=== PATIENT | female | born 1945 | race Caucasian/White ===

== ENCOUNTER 2018-07-12 15:13 | Emergency (ER) | payer MEDICARE, MEDICAID ==
[2018-07-12] MEDS ORDERED: levETIRAcetam 250 MG Tab PO SCH (17:00)
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
== END 2018-07-12 18:53 | disposition home or self-care (01) ==
LOC: FB.ED 15:13
DX: R56.9 Unspecified convulsions (principal); Z88.8 Allergy status to other drugs, medicaments and biological substances; Z79.899 Other long term (current) drug therapy
CPT/HCPCS: 36415; 70450; 80053; 80177; 82550; 84484; 85025; 85379; 93005; 99284; A9270-GY

== ENCOUNTER 2018-11-28 06:59 | Day surgery (SDC) | payer MEDICARE, MEDICAID ==
[~2018-11-28 06:59] MED LIST: Lactated Ringers 1,000 ML IV SCH
[2018-11-28] MEDS ORDERED: Propofol 200 MG/20 ML SDV IV ONE (07:00)
[2018-11-28] MEDS ORDERED: Midazolam 1 MG/ML 2 ML SDV IV ONE (07:00)
--- NOTE | 2018-11-28 08:26 | PCM.OPNOTE ---
- General Post-Op/Procedure Note Date of Surgery/Procedure: 11/28/18 Operative Procedure(s): c scope with bx Findings: normal mucosa scattered sigmoid diverticuli Pre Op Diagnosis: diarrhea Post-Op Diagnosis: normal mucosa. scattered sigmoid diverticuli Anesthesia Technique: MAC Primary Surgeon: Dmitry Cowart Anesthesia Provider: Pinky Rashid ([facility] CRNAS) Pathology: random bx Complications: None Condition: Good Free Text/Narrative:: see dictation
--- NOTE | 2018-11-28 15:34 | OR ---
DATE OF OPERATION: 11/28/2018 SURGEON: Dmitry Cowart MD PROCEDURE PERFORMED: Colonoscopy with cold forceps biopsy. PREOPERATIVE DIAGNOSIS: Personal history of diarrhea and generalized abdominal pain. POSTOPERATIVE DIAGNOSIS: Grossly normal scope. INDICATIONS FOR PROCEDURE: This is a 72-year-old white female, who has had a longstanding history of diarrhea. She was offered and accepted colonoscopy as part of the workup. DESCRIPTION OF OPERATION: After an excellent IV sedation was administered, digital rectal exam was performed. No marked abnormality was noted. Flexible colonoscope was inserted and advanced to the cecum. Prep was excellent. The following findings were noted: Ascending colon, unremarkable, random biopsies done. Transverse colon, unremarkable, random biopsies were done. Descending colon, unremarkable, random biopsies were done. Sigmoid and rectum unremarkable except for scattered diverticula. Random biopsies were done. Colon was deflated. Scope was removed. Results by letter. /[id number] /MODL
== END 2018-11-28 09:28 | disposition home or self-care (01) ==
LOC: FB.SDS 06:59
PROVIDERS: ATTEND Surgery
DX: K57.30 Diverticulosis of large intestine without perforation or abscess without bleeding (principal); F32.9 Major depressive disorder, single episode, unspecified; F41.1 Generalized anxiety disorder; E66.9 Obesity, unspecified; Z68.34 Body mass index [BMI] 34.0-34.9, adult; Z88.8 Allergy status to other drugs, medicaments and biological substances; Z86.010 Personal history of colon polyps; Z79.82 Long term (current) use of aspirin; Z79.899 Other long term (current) drug therapy
CPT/HCPCS: 00811-QZ; 88305; J2250; J2704; J7120

== ENCOUNTER 2019-01-23 14:12 | Emergency (ER) | payer MEDICARE, MEDICAID ==
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
[2019-01-23] MEDS ORDERED: Cephalexin 500 MG Cap PO ONE (18:47)
--- NOTE | 2019-01-24 10:32 | CR ---
INDICATION: Fall, chest pain, fell over walker, syncope. CHEST: PA and lateral views of the chest, 01/23/19 - no comparisons. The heart is normal in size and shape. The aorta is tortuous. Moderate to moderately severe bridging hyperostotic changes are noted in the mid to lower middle thoracic spine. Slightly flattened diaphragm leaves, interdigitation, prominent AP diameter, and hyperaeration all suggest COPD - correlate clinically. Overlying EKG leads and snaps are noted. No consolidating pneumonia or effusion was seen. IMPRESSION: 1. No definite acute process. 2. Probable COPD. 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
== END 2019-01-23 18:58 | disposition home or self-care (01) ==
LOC: FB.ED 14:12
DX: N39.0 Urinary tract infection, site not specified (principal); I50.9 Heart failure, unspecified; K21.9 Gastro-esophageal reflux disease without esophagitis; F41.9 Anxiety disorder, unspecified; M19.90 Unspecified osteoarthritis, unspecified site; F32.9 Major depressive disorder, single episode, unspecified; E66.9 Obesity, unspecified; Z68.34 Body mass index [BMI] 34.0-34.9, adult; Z88.8 Allergy status to other drugs, medicaments and biological substances; Z79.83 Long term (current) use of bisphosphonates; Z79.82 Long term (current) use of aspirin; Z79.899 Other long term (current) drug therapy; Z77.22 Contact with and (suspected) exposure to environmental tobacco smoke (acute) (chronic)
CPT/HCPCS: 36415; 71046; 80053; 81001; 84484; 85025; 86140; 93005; 99284; A9270; 93010

== ENCOUNTER 2019-06-15 15:40 | Emergency (ER) | payer MEDICARE, MEDICAID ==
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
== END 2019-06-15 17:42 | disposition home or self-care (01) ==
LOC: FB.ED 15:40
DX: F44.5 Conversion disorder with seizures or convulsions (principal); I50.9 Heart failure, unspecified; K21.9 Gastro-esophageal reflux disease without esophagitis; M19.90 Unspecified osteoarthritis, unspecified site; F41.9 Anxiety disorder, unspecified; F32.9 Major depressive disorder, single episode, unspecified; Z86.73 Personal history of transient ischemic attack (TIA), and cerebral infarction without residual deficits; E66.9 Obesity, unspecified; Z68.36 Body mass index [BMI] 36.0-36.9, adult; Z88.8 Allergy status to other drugs, medicaments and biological substances; Z79.82 Long term (current) use of aspirin; Z79.899 Other long term (current) drug therapy
CPT/HCPCS: 93005; 99284-25

== ENCOUNTER 2019-09-10 17:26 | Emergency (ER) | payer MEDICARE, MEDICAID ==
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
== END 2019-09-10 18:45 | disposition home or self-care (01) ==
LOC: FB.ED 17:26
DX: R07.89 Other chest pain (principal); F41.9 Anxiety disorder, unspecified; I50.9 Heart failure, unspecified; K21.9 Gastro-esophageal reflux disease without esophagitis; F32.9 Major depressive disorder, single episode, unspecified; E66.9 Obesity, unspecified; Z79.899 Other long term (current) drug therapy; Z86.73 Personal history of transient ischemic attack (TIA), and cerebral infarction without residual deficits; Z79.82 Long term (current) use of aspirin; Z88.8 Allergy status to other drugs, medicaments and biological substances
CPT/HCPCS: 36415; 80048; 84484; 85025; 93005; 99285; A9270